=== PATIENT | female | born 1945 | race Native Hawaiian/Other Pacific Islander ===

== ENCOUNTER 2016-11-22 16:57 | Outpatient (CLI) | payer OTHER | END 2016-11-22 23:41 | disposition home or self-care (01) | LOC: LABW 16:57 | DX: Z79.899 Other long term (current) drug therapy (principal); L63.8 Other alopecia areata; Z51.81 Encounter for therapeutic drug level monitoring | CPT/HCPCS: 36415; 86039; 86376 ==

== ENCOUNTER 2016-12-23 10:20 | Outpatient (CLI) | payer OTHER | END 2016-12-23 19:30 | disposition home or self-care (01) | LOC: MAMMO 10:20 | DX: Z12.31 Encounter for screening mammogram for malignant neoplasm of breast (principal) | CPT/HCPCS: G0202-TC ==

== ENCOUNTER 2018-03-16 13:35 | Outpatient (CLI) | payer OTHER | END 2018-03-16 22:39 | disposition home or self-care (01) | LOC: MAMMO 13:35 | DX: Z12.31 Encounter for screening mammogram for malignant neoplasm of breast (principal) ==

== ENCOUNTER 2020-11-20 13:40 | Outpatient (CLI) | payer OTHER | END 2020-11-20 19:59 | disposition home or self-care (01) | LOC: MRI 13:40 | PROVIDERS: ATTEND Internal Medicine | DX: R07.89 Other chest pain (principal); R42 Dizziness and giddiness; R55 Syncope and collapse; R06.02 Shortness of breath; I47.1 Supraventricular tachycardia ==

== ENCOUNTER 2021-03-12 08:36 | Outpatient (CLI) | payer OTHER | END 2021-03-12 22:39 | disposition home or self-care (01) | LOC: US 08:36 | PROVIDERS: ATTEND Internal Medicine | DX: I73.9 Peripheral vascular disease, unspecified (principal); R94.39 Abnormal result of other cardiovascular function study ==

== ENCOUNTER 2021-04-02 08:30 | Outpatient (CLI) | payer OTHER | END 2021-04-02 19:54 | disposition home or self-care (01) | LOC: LABW 08:30 | PROVIDERS: ATTEND Nurse Practitioner | DX: R19.7 Diarrhea, unspecified (principal) | CPT/HCPCS: 82272; 83630; 87015; 87045; 87324; 87328; 87329; 87449; 87899 ==

== ENCOUNTER 2022-01-20 10:27 | Outpatient (CLI) | payer OTHER | END 2022-01-20 19:59 | disposition home or self-care (01) | LOC: MAMMO 10:27 | PROVIDERS: ATTEND Nurse Practitioner | DX: Z12.31 Encounter for screening mammogram for malignant neoplasm of breast (principal) ==

== ENCOUNTER 2022-06-29 16:14 | Outpatient (CLI) | payer OTHER ==
[2022-06-29 16:42] LABS: PLATELET COUNT 248 K/uL (152-353)
[2022-06-29 16:51] LABS: POTASSIUM 3.7 mmol/L (3.6-5.2)
== END 2022-06-29 19:01 | disposition home or self-care (01) ==
LOC: RAD 16:14
PROVIDERS: ATTEND Internal Medicine
DX: R05.3 Chronic cough (principal); R50.9 Fever, unspecified
CPT/HCPCS: 80053; 85027

== ENCOUNTER 2023-03-31 15:12 | Outpatient (CLI) | payer OTHER | END 2023-03-31 19:03 | disposition home or self-care (01) | LOC: RAD 15:12 | PROVIDERS: ATTEND Internal Medicine Critical Care Medicine | DX: J44.9 Chronic obstructive pulmonary disease, unspecified (principal) ==

== ENCOUNTER 2023-07-10 11:54 | Outpatient (CLI) | payer OTHER | END 2023-07-10 19:08 | disposition home or self-care (01) | LOC: US 11:54 | PROVIDERS: ATTEND Internal Medicine | DX: R22.1 Localized swelling, mass and lump, neck (principal) ==

== ENCOUNTER 2023-07-20 09:14 | Outpatient (CLI) | payer OTHER | END 2023-07-20 19:11 | disposition home or self-care (01) | LOC: CT 09:14 | PROVIDERS: ATTEND Internal Medicine | DX: R22.1 Localized swelling, mass and lump, neck (principal) | CPT/HCPCS: 36415; 82565; 84520; Q9963 ==